=== PATIENT | female | born 1960 | race Caucasian/White ===

== ENCOUNTER 2019-02-05 10:12 | Observation (INO) | payer BC ==
[~2019-02-05] VITALS: Ht 157.5 cm; Wt 97.5 kg
--- OUTSIDE RECORDS SUMMARY | 2019-02-05 10:14 | XMS REPORT ---
Author Author [facility] Address Unknown Phone Unavailable Care Team Providers Care Subacute Nurse Name Role Phone Unavailable Unavailable Payers Payer Name Policy Type Policy Number Effective Date Expiration Date Problems This patient has no known problems. Allergies, Adverse Reactions, Alerts Allergy Name Allergy Type Status Severity Reaction(s) Onset Date Inactive Date Treating Clinician Comments glatiramer acetate DA Active SV 2012-05-02 00:00:00 Penicillins DA Active SV 2012-05-02 00:00:00 nitrofurantoin DA Active KS 2012-05-02 00:00:00 latex DA Active KS 2012-05-02 00:00:00 Medications This patient has no known medications. Results Test Description Test Time Test Comments Text Results Atomic Results Result Comments CALCULI URINARY WITH PHOTO 2018-12-22 16:08:00 ST COLOR (test code=COLST) Brown () ST SIZE (test code=SIZST) 6x4x3 mm () ST WEIGHT (test code=WGTST) 65.6 mg () ST COMPOSITION (test code=COMPST) () Percentage (Represents the % composition) ST CA OXALATE DIHYDRATE (test code=CAOXDST) 25 % () ST CA OXALATE MONOHYDRATE (test code=CAOXMST) 70 % () ST CA PHOSPHATE (test code=CAPHST) 05 % () ST NIDUS (test code=NIDUSST) No Nidus visualized () ST PHOTO (test code=PHOTST) () Photograph will follow under separate cover.Previously reported result: Edited by: THERESA on 12/22/18:66008412/22/18 1608: ANAST previously reported as: ST COMMENT 3 (test code=CMTST3) () Physician questions regarding Calculi Analysis [facility] at: [phone].Previously reported result: Edited by: THERESA on 12/22/18:03810412/22/18 1608: CMTST3 previously reported as: SURGICAL [id number] 13:22:00 RUN DATE: 12/20/18 [facility] *LIVE* PAGE 1 RUN TIME: 1323 Specimen Inqui ry RUN USER: INTERFACE PATIENT: BENIGNO PERSAUD ACCT #: [id number] LOC: VeenaSRG U #: [id number] AGE/SX: 57/F ROOM: RE12/15/18[facility] DR: Leroy Yanez Jr, MD : 58 BED: DIS: STATUS: [facility] TLOC: SPEC #: [id number] RECD: 12/18/18-1116 STATUS: GOYO PUGA #: [id number] GERMAN: 12/18/[address] [facility] [address]: Leroy Yanez Jr, MD ENTERED: 12/20/18 SP TYPE: SURG SPEC OTHR DR: DOES_N OT KNOW ORDERED: GM LEVEL 4 CODES: R74024 - URETER, NOS COPIES TO: DO ES_NOT KNOW Leroy Yanez Jr, MD [address] [place], [place] [address] PROCEDURES: GM LEVEL 4 (Incomplete) TISSUES: 1. URETE R, NOS - Calculus, right ureter FINAL DIAGNOSIS Calculus, right urete r: Sent for chemical analysis. Gross diagnosis only. GROSS AND MICROSCOPIC GROSS EXAMINATION: Received fresh labeled right ureteral stone is a 0.4 cm aggregate of kan-brown stones submitted for chemical analysis. POST-OP DIAGNOSIS Right ureteral stone PRE-OP DIAGNOSIS Right ureteral stone Signed SIGNATURE ON FILE Kade Christine DO 12/20/18 1322 END OF REPORT - XR CYSTOURETHRO [id number] 16:13:00 FAX: Leroy Rodarte Jr [phone] [place]: St: REG Name: N UNN,BENIGNO EULOGIO [facility] : [birth year] 59 Age/S: 57/F [address] [place] [address] Unit #: [id number] [place]: [place] [address] Phys: Leroy Yanez Jr, MD Acct: [id number] Dis Date: Status: REG SD PHONE #: [phone] Exam Date: 12/15/2018 1239 FAX #: [phone] Reason: RT RENAL CALCULUS,RT HYDRONEPHROSIS EXAMS: CPT CODE: [id number] XR CYSTOURETHRO RETRO 94338 Intraprocedural fluoroscopy was pr ovided by the Department of Radiology. Any images obtained were interprete d by the surgeon intraoperatively. FLUOROSCOPY TIME: 55 seco nds REFERENCE AIR KERMA : 12.51 mGy SL: TR-H at 1193 Reported and signed by: Kieran Mcnulyt M.D. CC: Leroy Yanez Jr, MD Technologist: Kalpana Nieves RT(R)(M) Trnscrd Date/Time/By: 12/15/2018 (9292) : By: [email or web address] Orig Print D/T: S: 12/15/2018 (9305) PAGE 1 Signed Report [id number] 12:55:00* Test Item Value Reference Range Comments GLUBED (test code=GLUBED) 143 MG/DL 70-110 Performed by certified process camera operator at [facility] [id number] 12:47:00* Test Item Value Reference Range Comments GLUBED (test code=GLUBED) 140 MG/DL 70-110 Performed by certified process camera operator at [facility] - XR ABDOMEN 1V (KUB)2018-12-15 12:06:00 FAX: Leroy Rodarte Jr [phone] [place]: St: REG Name: BENIGNO EDOUARD [facility] : [birth year] 59 Age/S: 57/F [address] [place] [address] Unit #: [id number] Loc: [place] [address] Phys: Leroy Yanez Jr, MD Acct: [id number] Dis Date: Status: REG [facility] PHONE #: [phone] Exam Date: 12/15/2018 1132 FAX #: [phone] Reason: CYSTOSCOPY EXAMS: CPT CODE: [id number] XR ABDOMEN 1V (KUB) 20514 Clinical Indication: Cystoscopy. Right ureteral calculus. Comparison: CT 12/09/2018. Impress ion: Abdomen, single view submitted on 2 images. Previously noted right ureteral calculus is not definitely appreciated on the current study. However, it may possibly lie just right of the sacrum. Bowel gas patter n is nonobstructive. Lumbosacral degenerative changes. SL: [id number] at 1206 Reported and signed by: Vitaly Willett M.D. CC: Leroy Yanez Jr, MD Technologist: RT Keron(Gisele) Trnscrd Date/Time/By: 12/15/2018 (8556) : By: [email or web address] Orig Print D/T: S: 12/15/2018 (4972) PAGE 1 Signed Report CBC W/AUTO [id number] 08:57:00* Test Item Value Reference Range Comments WHITE BLOOD CELL (test code=WBC) 8.77 x10 3/uL 4.5-11.0 RED BLOOD CELL (test code=RBC) 4.21 x10 6/uL 3.54-5.02 HEMOGLOBIN (test code=HGB) 12.2 g/dL 11.0-15.0 HEMATOCRIT (test code=HCT) 37.8 % 33.0-45.0 MEAN CELL VOLUME (test code=MCV) 89.8 fL 81.0-99.0 MEAN CELL HGB (test code=MCH) 29.0 pg 27.0-33.0 MEAN CELL HGB CONCETRATION (test code=MCHC) 32.3 g/dL 33.0-37.0 RED CELL DISTRIBUTION WIDTH CV (test code=RDW) 13.2 % 11.5-14.5 RED CELL DISTRIBUTION WIDTH SD (test code=RDW-SD) 43.8 fL 37.0-54.0 PLATELET COUNT (test code=PLT) 266 x10 3/uL 150-400 MEAN PLATELET VOLUME (test code=MPV) 11.1 fL 7.0-9.0 NEUTROPHIL % (test code=NT%) 59.7 % 56.0-77.0 IMMATURE GRANULOCYTE % (test code=IG%) 0.6 % 0.0-2.0 LYMPHOCYTE % (test code=LY%) 27.8 % 14.0-32.0 MONOCYTE % (test code=MO%) 7.0 % 4.8-9.0 EOSINOPHIL % (test code=EO%) 4.0 % 0.3-3.7 BASOPHIL % (test code=BA%) 0.9 % 0.0-2.0 NUCLEATED RBC % (test code=NRBC%) 0.0 % 0-0 NEUTROPHIL # (test code=NT#) 5.24 x10 3/uL 2.0-7.6 IMMATURE GRANULOCYTE # (test code=IG#) 0.05 x10 3/uL 0.00-0.03 LYMPHOCYTE # (test code=LY#) 2.44 x10 3/uL 1.0-3.8 MONOCYTE # (test code=MO#) 0.61 x10 3/uL 0.1-0.8 EOSINOPHIL # (test code=EO#) 0.35 x10 3/uL 0.0-0.2 BASOPHIL # (test code=BA#) 0.08 x10 3/uL 0.0-0.2 NUCLEATED RBC # (test code=NRBC#) 0.00 x10 3/uL 0.0-0.1 MANUAL DIFF REQUIRED (test code=MDIFF) NO PTH INTACT [id number] 08:52:00* Test Item Value Reference Range Comments PARATHYROID HORMONE INTACT (test code=PARAI) 30.5 pg/mL 14.0-72.0 COMPREHENSIVE METABOLIC [id number] 08:23:00* Test Item Value Reference Range Comments SODIUM (test code=NA) 138 mEq/L 134-147 POTASSIUM (test code=K) 3.9 mEq/L 3.4-5.0 CHLORIDE (test code=CL) 103 mEq/L 100-108 CARBON DIOXIDE (test code=CO2) 28 mEq/L 21-33 ANION GAP (test code=GAP) 11 0-20 GLUCOSE (test code=GLU) 147 mg/dL 70-110 BLOOD UREA NITROGEN (test code=BUN) 12 mg/dL 7-18 GLOMERULAR FILTRATION RATE (test code=GFR) 85.9 90-95 Units of measure=ml/min/1.73 m2 CREATININE (test code=CREAT) 0.7 mg/dL 0.6-1.3 TOTAL PROTEIN (test code=PROT) 7.0 g/dL 6.4-8.2 ALBUMIN (test code=ALB) 3.10 g/dL 3.4-5.0 CALCIUM (test code=CA) 9.4 mg/dL 8.0-10.5 BILIRUBIN TOTAL (test code=BILT) 0.6 MG/DL <1.5 SGOT/AST (test code=AST) 40 IUnit/L 15-37 SGPT/ALT (test code=ALT) 57 IUnit/L 15-65 ALKALINE PHOSPHATASE TOTAL (test code=ALKP) 115 IUnit/L 20-125 URIC [id number] 08:23:00* Test Item Value Reference Range Comments URIC ACID (test code=URIC) 4.9 mg/dL 2.6-7.2 PROTHROMBIN [id number] 08:21:00* Test Item Value Reference Range Comments PROTHROMBIN TIME PATIENT (test code=PTP) 11.0 SECONDS 9.3-12.9 INTERNATIONAL NORMAL RATIO (test code=INR) 1.0 0.8-1.2 TARGET INR BY INDICATION Indication INR1. Prophylaxis of venous thrombosis 2.0 - 3.0 (orthopedic surgery), Prophylaxis of venous thrombosis (other than high-risk surgery), Treatment of Deep Vein Thrombosis/Pulmonary Embolism, Prevention of systemic embolism - Tissue heart valves, Acute Myocardial Infarction (to prevent systemic embolism), Valvular heart disease, Atrial Fibrillation, Bileaflet mechanical valve in aortic position.2. Mechanical prosthetic valves (high risk), 2.5 - 3.5 Presence of Lupus Anticoagulant or Antiphospholipid Antibodies, Prevention of systemic embolism - Acute Myocardial Infarction (to prevent recurrent infarct). THROMBOPLASTIN TIME [id number] 08:21:00* Test Item Value Reference Range Comments THROMBOPLASTIN TIME PARTIAL (test code=PTT) 30.9 Seconds 25.0-39.5 Therapeutic Range: 50.4 - 88.3 Seconds Effective 07/11/2018 COMPREHENSIVE METABOLIC [id number] 08:21:00* Test Item Value Reference Range Comments SODIUM (test code=NA) 138 mEq/L 134-147 POTASSIUM (test code=K) 3.9 mEq/L 3.4-5.0 CHLORIDE (test code=CL) 103 mEq/L 100-108 CARBON DIOXIDE (test code=CO2) 28 mEq/L 21-33 ANION GAP (test code=GAP) 11 0-20 GLUCOSE (test code=GLU) 147 mg/dL 70-110 BLOOD UREA NITROGEN (test code=BUN) 12 mg/dL 7-18 GLOMERULAR FILTRATION RATE (test code=GFR) 90-95 CREATININE (test code=CREAT) mg/dL 0.6-1.3 TOTAL PROTEIN (test code=PROT) g/dL 6.4-8.2 ALBUMIN (test code=ALB) g/dL 3.4-5.0 CALCIUM (test code=CA) 9.4 mg/dL 8.0-10.5 BILIRUBIN TOTAL (test code=BILT) MG/DL <1.5 SGOT/AST (test code=AST) IUnit/L 15-37 SGPT/ALT (test code=ALT) IUnit/L 15-65 ALKALINE PHOSPHATASE TOTAL (test code=ALKP) IUnit/L 20-125 URIC [id number] 08:21:00* Test Item Value Reference Range Comments URIC ACID (test code=URIC) mg/dL 2.6-7.2 - XR CHEST 2 [id number] 08:17:00 FAX: Leroy Rodarte Jr [phone] [place]: St: PRE Name: BENIGNO EDOURAD [facility] : [birth year] 59 Age/S: 57/F [address] [place], [place] [address] Unit #: [id number] Loc: [place] [address] Phys: Leroy Yanez Jr, MD Acct: [id number] Dis Date: Status: PRE SDC PHONE #: [phone] Exam Date: 12/14/2018 08 FAX #: [phone] Reason: PRE-OP CYSTO EXAMS: CPT CODE: [id number] XR CHEST 2 V 93527 CHEST RADIOGRAPHS - PA AND LATERAL: COMPARISON: May 02, 2012 CLINICAL HISTORY: PRE-OP CYSTO The cardiopericardial silhouette is within normal limits. Small retrocardiac hiatal hernia is present. No vascular congestion or pneumothorax. Soft tissue calcifications a re seen adjacent to the right humeral head, possibly representing dystroph ic calcification and/or changes of calcific tendinitis of the rotator cuff . IMPRESSION: No acute pulmonary abnormality. Hiatal hernia. at 0817 Reported and signed by: Juan Mcdowell M.D. CC: Leroy Yanez Jr, MD Technologist: RT Gonsalo(R) Trnscrd Date/Time/By: 12/14/2018 (0817) : By: [email or web address] Orig Print D/T: S: 12/14/2018 (820) PAGE 1 Signed Report URINALYSIS [id number] 08:07:00* Test Item Value Reference Range Comments UA COLOR (test code=COLU) YELLOW YEL/STRAW UA APPEARANCE (test code=APPU) CLEAR CLEAR UA GLUCOSE DIPSTICK (test code=DGLUU) NEGATIVE NEGATIVE UA BILIRUBIN DIPSTICK (test code=BILU) NEGATIVE NEGATIVE UA KETONE DIPSTICK (test code=KETU) NEGATIVE NEGATIVE UA SPECIFIC GRAVITY (test code=SGU) 1.018 1.005-1.030 UA BLOOD DIPSTICK (test code=HARINDER) 1+ NEGATIVE UA PH DIPSTICK (test code=MANJEET) 5.0 5.0-7.0 UA PROTEIN DIPSTICK (test code=PROU) NEGATIVE NEGATIVE UA UROBILINIOGEN DIPSTICK (test code=URO) 0.2 mg/dL 0.2-1.0 UA NITRITE DIPSTICK (test code=PARRIS) NEGATIVE NEGATIVE UA LEUKOCYTE ESTERASE DIPSTICK (test code=LEUU) NEGATIVE NEGATIVE UA RBC (test code=RBCU) 11-20 RBC/HPF 0-3 UA WBC NO REFLEX (test code=WBCUCL) 4-9 WBC/HPF 0-3 UA BACTERIA (test code=BACU) NONE SEEN /HPF NONE SEEN UA SQUAMOUS CELLS (test code=SQU) 0-5 /HPF NONE SEEN UA CALCIUM OXALATE CRYSTALS (test code=CAOXU) TRACE /HPF NONE SEEN UA MUCUS (test code=MUCU) TRACE /LPF NONE SEEN HEPATIC FUNCTION [id number] 21:31:00* Test Item Value Reference Range Comments TOTAL PROTEIN (test code=PROT) 7.5 g/dL 6.4-8.2 ALBUMIN (test code=ALB) 3.40 g/dL 3.4-5.0 BILIRUBIN TOTAL (test code=BILT) 0.4 MG/DL <1.5 BILIRUBIN DIRECT (test code=BILD) 0.20 MG/DL 0.0-0.30 BILIRUBIN INDIRECT (test code=BILIND) 0.20 MG/DL SGOT/AST (test code=AST) 37 IUnit/L 15-37 SGPT/ALT (test code=ALT) 62 IUnit/L 15-65 ALKALINE PHOSPHATASE TOTAL (test code=ALKP) 138 IUnit/L 20-125 URINALYSIS [id number] 21:21:00* Test Item Value Reference Range Comments UA COLOR (test code=COLU) VERONICA YEL/STRAW UA APPEARANCE (test code=APPU) SL CLOUDY CLEAR UA GLUCOSE DIPSTICK (test code=DGLUU) 2+ NEGATIVE UA BILIRUBIN DIPSTICK (test code=BILU) NEGATIVE NEGATIVE UA KETONE DIPSTICK (test code=KETU) NEGATIVE NEGATIVE UA SPECIFIC GRAVITY (test code=SGU) 1.025 1.005-1.030 UA BLOOD DIPSTICK (test code=HARINDER) 3+ NEGATIVE UA PH DIPSTICK (test code=MANJEET) 5.0 5.0-7.0 UA PROTEIN DIPSTICK (test code=PROU) 2+ NEGATIVE UA UROBILINIOGEN DIPSTICK (test code=URO) 4.0 mg/dL 0.2-1.0 UA NITRITE DIPSTICK (test code=PARRIS) POSITIVE NEGATIVE UA LEUKOCYTE ESTERASE DIPSTICK (test code=LEUU) NEGATIVE NEGATIVE UA RBC (test code=RBCU) >50 RBC/HPF 0-3 UA WBC NO REFLEX (test code=WBCUCL) 0-3 WBC/HPF 0-3 UA BACTERIA (test code=BACU) NONE SEEN /HPF NONE SEEN UA SQUAMOUS CELLS (test code=SQU) 0-5 /HPF NONE SEEN UA MUCUS (test code=MUCU) 4+ /LPF NONE SEEN CBC W/AUTO [id number] 21:10:00* Test Item Value Reference Range Comments WHITE BLOOD CELL (test code=WBC) 10.13 x10 3/uL 4.5-11.0 RED BLOOD CELL (test code=RBC) 4.49 x10 6/uL 3.54-5.02 HEMOGLOBIN (test code=HGB) 12.9 g/dL 11.0-15.0 HEMATOCRIT (test code=HCT) 39.7 % 33.0-45.0 MEAN CELL VOLUME (test code=MCV) 88.4 fL 81.0-99.0 MEAN CELL HGB (test code=MCH) 28.7 pg 27.0-33.0 MEAN CELL HGB CONCETRATION (test code=MCHC) 32.5 g/dL 33.0-37.0 RED CELL DISTRIBUTION WIDTH CV (test code=RDW) 13.1 % 11.5-14.5 RED CELL DISTRIBUTION WIDTH SD (test code=RDW-SD) 42.5 fL 37.0-54.0 PLATELET COUNT (test code=PLT) 262 x10 3/uL 150-400 MEAN PLATELET VOLUME (test code=MPV) 10.8 fL 7.0-9.0 NEUTROPHIL % (test code=NT%) 73.4 % 56.0-77.0 IMMATURE GRANULOCYTE % (test code=IG%) 0.6 % 0.0-2.0 LYMPHOCYTE % (test code=LY%) 17.2 % 14.0-32.0 MONOCYTE % (test code=MO%) 7.5 % 4.8-9.0 EOSINOPHIL % (test code=EO%) 0.6 % 0.3-3.7 BASOPHIL % (test code=BA%) 0.7 % 0.0-2.0 NUCLEATED RBC % (test code=NRBC%) 0.0 % 0-0 NEUTROPHIL # (test code=NT#) 7.44 x10 3/uL 2.0-7.6 IMMATURE GRANULOCYTE # (test code=IG#) 0.06 x10 3/uL 0.00-0.03 LYMPHOCYTE # (test code=LY#) 1.74 x10 3/uL 1.0-3.8 MONOCYTE # (test code=MO#) 0.76 x10 3/uL 0.1-0.8 EOSINOPHIL # (test code=EO#) 0.06 x10 3/uL 0.0-0.2 BASOPHIL # (test code=BA#) 0.07 x10 3/uL 0.0-0.2 NUCLEATED RBC # (test code=NRBC#) 0.00 x10 3/uL 0.0-0.1 MANUAL DIFF REQUIRED (test code=MDIFF) NO CHEMISTRY 8 [id number] 21:09:00* Test Item Value Reference Range Comments ISTAT-SODIUM (test code=NAP) MMOL/L 134-147 ISTAT-POTASSIUM (test code=KP) MMOL/L 3.4-5.0 ISTAT-CHLORIDE (test code=CLP) MMOL/L 100-108 ISTAT CARBON DIOXIDE (test code=ISTAT-CO2) mmol/L 21-33 ISTAT CALCIUM IONIZED (test code=ISTAT-MEETA) MG/DL 1.12-1.32 ISTAT-GLUCOSE (test code=GLUP) MG/DL 70-110 ISTAT-BUN (test code=BUNP) MG/DL 7-18 BEDSIDE CREATININE (test code=CREATBED) MG/DL 0.6-1.3 GLOMERULAR FILTRATION RATE POC (test code=GFRBED) 91 ML/MIN CHEMISTRY 8 [id number] 21:09:00* Test Item Value Reference Range Comments ISTAT-SODIUM (test code=NAP) 134 MMOL/L 134-147 ISTAT-POTASSIUM (test code=KP) 3.9 MMOL/L 3.4-5.0 ISTAT-CHLORIDE (test code=CLP) 97 MMOL/L 100-108 Performed by certified process camera operator at [facility] ISTAT CARBON DIOXIDE (test code=ISTAT-CO2) 25.0 mmol/L 21-33 ISTAT CALCIUM IONIZED (test code=ISTAT-MEETA) 1.13 MG/DL 1.12-1.32 ISTAT-GLUCOSE (test code=GLUP) 219 MG/DL 70-110 ISTAT-BUN (test code=BUNP) 15 MG/DL 7-18 BEDSIDE CREATININE (test code=CREATBED) 0.7 MG/DL 0.6-1.3 GLOMERULAR FILTRATION RATE POC (test code=GFRBED) 91 ML/MIN LACTIC ACID [id number] 21:09:00* Test Item Value Reference Range Comments LACTIC ACID POC (test code=LACTP) 1.7 MMOL/L 0.90-1.70 Performed by certified process camera operator at [facility] - CT ABD PELVIS W/O [id number] 20:16:00 Name: BENIGNO PERSAUD [facility] : 1960 Age/S: 57 / F [address] [place] [address] Unit #: [id number] Loc: [place] [address] Phys: Randell Langford MD Acct: [id number] Dis Date: Status: PRE ER PHONE #: [phone] Exam Date: 12/09/20181948 FAX #: [phone] Reason: r flank pain EXAMS: CPT CODE: [id number] CT ABD PELVIS W/O CONT 09356 PROCEDURE: CT ABDOMEN AND PELVIS WITHOUT CONTRAST (RENAL STONE CT) INDICATION: Right flank pain COMPARISON: September 2008 TECHNIQUE: Noncontrasted helical imaging was performed diaphragm through the symphysis as a renal stone protocol with multiplanar reconstructions. CT imaging performed at this location utilizes radiation dose optimization techniques which include one or more of the following: -Automated exposure control -Adjustment of the mA and/or kV according to patient size -Use of iterative reconstruction technique CT Radiation Dose DLP 684.61 mGy-cm LIMITATIONS: Evaluation of abdominal viscera and vascular structures may be limited by the lack of intravenous contrast, which is standard for urinary calculus assessment CT. FINDINGS: KIDNEYS: Distal right ureteral calculus at the level of upper right sciatic notch measuring 5 x 4 mm. Mild right ureteral dilatation and moderate pelvocaliectasis. Mild asymmetric right perinephric stranding without fluid collection. No other discrete urinary calculi. No left-sided hydronephrosis. The renal contours are normal. LOWER CHEST: The lung bases are clear. Hiatal hernia containing portion of the proximal stomach. No regional inflammation. LIVER: The liver is diffusely diminished in attenua tion with sparing adjacent to the samaria hepatis and gallbladder fossa. At tenuation values of less than 10 Hounsfield units. No morphologic changes of cirrhosis. Craniocaudal length approximately 16 cm mid clavicular line. BILIARY TREE: No biliary dilatation. GALLBL ADDER: Normal. SPLEEN: Normal, 10.5 cm in length. Small accessory splenic lobule. PANCREAS: Normal. PAGE 1 Signed Report (CONTINUED) Name: BENIGNO PERSAUD [facility] : 1960 Age/S: 57 / F [address] [place] [address] Unit #: [id number] Loc: [place] [address] Phys: Randell Langford MD Acct: [id number] Dis Date: Status: PRE ER PHONE #: [phone] Exam Date: 12/09 FAX #: [phone] Reason: r flank pain EXAMS: CPT CODE: [id number] CT ABD PELVIS W/O CONT 74 176 <Continued> ADRENALS: Normal. BOWEL: Hiatal hernia containing portion of the proximal stomach. The stomach is otherwise unremarkable. The unopacified small bowel is unremarkable. Colonic diverticulosis, more numerous in the left colon. No inflammatory changes. No evidence for appendicitis. PERITONEUM: No free intraperitoneal fluid or air. RETROPERITONEUM: No adenopathy. Mild atherosclerosis abdominal aorta. PELVIS: No pelvic mass. Uterus is surgically absent. Urinary bladder is unremarkable. MUSCULOSKELETAL: Multilevel degenerative changes of the spine. Grade 1 anterolisthesis L5-S1. No pars defect. Facet arthropathy. IMPRESSION: 1. Distal right ureteral calculus with evidence for obstruction. 2. Severe hepatic steatosis. 3. Hiatal hernia. 4. Colonic diverticulosis. SL: KL-H at 2016 Reported and signed by: Kieran Mcnulty M.D. CC: Leroy Yanez Jr, MD Technologist:Oc Carrillo, RT(R)(CT) CTDI: DLP: Trnscb Date/Time: 12/09/2018 (2015) margie ALEGRIA Orig Print D/T: S: 12/09/2018 (2019) PAGE 2 Signed Report
[2019-02-05] MEDS ORDERED: NITROGLYCERIN 2% OINT 1 GM PKT TOP STA (10:41)
[2019-02-05] MEDS ORDERED: FAMOTIDINE 20 MG/2 ML VIAL IV STA (10:44)
[2019-02-05] MEDS ORDERED: DEXTROSE 50% SYRINGE 50 ML IV PRN (11:00)
[2019-02-05] MEDS ORDERED: MORPHINE SULFATE 2 MG/ML SYR 1ML IV PRN (11:00)
[2019-02-05] MEDS ORDERED: ONDANSETRON HCL INJ 2MG/ML 2ML 2 MG/ML VIAL IV PRN (11:00)
[2019-02-05] MEDS ORDERED: ONDANSETRON HCL INJ 2MG/ML 2ML 2 MG/ML VIAL IV ONE (11:30)
[2019-02-05] MEDS: INSULIN REGULAR, HUMAN 100 UNIT/1 ML 3ML VIAL SQ SCH ×3 (11:30→20:14)
[2019-02-05] MEDS ORDERED: ASPIRIN 81 MG CHEW TAB PO ONE (11:30)
[2019-02-05] MEDS ORDERED: ENOXAPARIN SODIUM INJ 100 MG/ML SYR SC ONE (11:30)
[2019-02-05] MEDS ORDERED: MORPHINE SULFATE INJ 4 MG/ML INJ 1ML IV ONE (11:30)
[2019-02-05] MEDS ORDERED: METOPROLOL TARTRATE 50 MG TAB PO ONE (11:30)
[2019-02-05] MEDS: FAMOTIDINE 20 MG/2 ML VIAL IV SCH ×2 (12:00→23:14)
[2019-02-05] MEDS: NITROGLYCERIN 2% OINT 1 GM PKT TOP SCH ×2 (12:00→20:14)
--- NOTE | 2019-02-05 12:06 | Diagnostic Imaging Report ---
Chest, 1 view, 02/05/2019. History: Midsternal chest pain. Comparison: None available. Findings: The cardiomediastinal silhouette and pulmonary vasculature are within normal limits for a portable exam. There is no focal consolidation or pleural effusion. Calcification is noted adjacent to the right humeral head which may represent calcific tendinitis. There are no acute osseous or soft tissue abnormalities. Impression: No acute cardiopulmonary abnormality. Signed by: Juancho Nava on 02/05/2019 12:03 PM
[2019-02-05 12:44] LABS: BASOPHILS # (AUTO) 0.1 (0.0-0.1); BASOPHILS % 0.7 % (0.0-1.0); EOSINOPHILS # (AUTO) 0.1 (0.0-0.4); EOSINOPHILS % 1.6 % (0.0-6.0); HEMATOCRIT 37.7 % (34.2-44.1); HEMOGLOBIN 12.2 g/dL (12.0-16.0); LYMPHOCYTES # (AUTO) 2.2 (1.0-3.2); LYMPHOCYTES % 24.4 % (18.0-39.1); MEAN CORPUSCULAR HEMOGLOBIN 27.5 pg (28-32); MEAN CORPUSCULAR HGB CONC 32.4 g/dL (31-35); MEAN CORPUSCULAR VOLUME 85.1 fL (81-99); MONOCYTES # (AUTO) 0.5 (0.2-0.8); MONOCYTES % 5.4 % (4.4-11.3); NEUTROPHILS # (AUTO) 6.1 (2.1-6.9); NEUTROPHILS % 67.5 % (38.7-80.0); PLATELET COUNT 296 x10e3/uL (140-360); RED BLOOD COUNT 4.43 x10e6/uL (3.6-5.1); RED CELL DISTRIBUTION WIDTH 13.6 % (11.7-14.4)
[2019-02-05 12:52] LABS: INR 0.95; PARTIAL THROMBOPLASTIN TIME 29.2 seconds (23.8-35.5); PROTHROMBIN TIME 13.2 seconds (11.9-14.5)
[2019-02-05 13:05] LABS: ALANINE AMINOTRANSFERASE 31 IU/L (0-55); ALBUMIN 3.4 g/dL (3.5-5.0); ALBUMIN/GLOBULIN RATIO 0.9 (0.8-2.0); ALKALINE PHOSPHATASE 90 IU/L (40-150); ANION GAP 12.9 mmol/L (8-16); BLOOD UREA NITROGEN 13 mg/dL (7-26); BUN/CREATININE RATIO 21 (6-25); CALCIUM 9.7 mg/dL (8.4-10.2); CARBON DIOXIDE 24 mmol/L (22-29); CHLORIDE 103 mmol/L (98-107); CREATINE KINASE 94 IU/L (29-168); CREATININE, SERUM 0.63 mg/dL (0.57-1.11); EST GLOMERULAR FILTRATION RATE > 60 ML/MIN (60-); GLUCOSE 143 mg/dL (74-118); MAGNESIUM 1.8 MG/DL (1.3-2.1); POTASSIUM 3.9 mmol/L (3.5-5.1); SODIUM 136 mmol/L (136-145)
[2019-02-05 15:21] VITALS: BP 172/79
[2019-02-05 15:30] VITALS: BP 172/79
[2019-02-05] MEDS ORDERED: METFORMIN HCL500 M2 PO (15:36)
[2019-02-05] MEDS ORDERED: METFORMIN HCL500 M1 PO (15:37)
[2019-02-05] MEDS ORDERED: JANUVIA100 MG PO (15:38)
[2019-02-05] MEDS ORDERED: SIMVASTATIN20 MG PO (15:39)
[2019-02-05] MEDS ORDERED: BENICAR20 MG PO (15:39)
[2019-02-05] MEDS ORDERED: HYDROCHLOROTHIA25 MG PO (15:40)
--- NOTE | 2019-02-05 18:44 | Consultation ---
DATE OF CONSULTATION: Cardiology Consultation HISTORY OF PRESENT ILLNESS: This is a 58-year-old woman with a history of hypertension, hyperlipidemia, diabetes mellitus, and obesity, presented to the emergency department with chest pain. The patient reports a pressure in her central chest with radiation through to her back, occurred while she was outside doing chores, worse with exertion, better with rest, worse with deep inspirations. No other exacerbating or relieving factors. She has no prior cardiac problems or myocardial infarctions. She states that she recently had an echocardiogram, however, cannot remember the results. REVIEW OF SYSTEMS: A 12-point review of system was conducted, is negative except as stated above in the HPI. PAST MEDICAL HISTORY: As stated above in the HPI. PAST SURGICAL HISTORY: None recent. PAST FAMILY HISTORY: No premature coronary artery disease or sudden cardiac . SOCIAL HISTORY: No illicit drug, alcohol, or tobacco use. ALLERGIES: PENICILLIN, LATEX, NITROFURANTOIN. MEDICATIONS: See medications reconciliation form. PHYSICAL EXAMINATION: VITAL SIGNS: Temperature is 96.3, heart rate 66, respirations are 18, blood pressure is 118/71, oxygen saturation 98% on room air. GENERAL: Well appearing, well built, no apparent distress. Alert and orient x3. HEAD: Normocephalic, atraumatic. EYES: Extraocular muscles are intact. Conjunctivae clear. NECK: No JVD. No bruits. CARDIOVASCULAR: Regular rate and rhythm. No murmurs. LUNGS: Clear to auscultation. No rales. ABDOMEN: Soft, nontender, nondistended. EXTREMITIES: No clubbing, cyanosis, or edema. VASCULAR: 2+ pulses. SKIN: Warm, dry and intact. NEUROLOGIC: No focal deficits noted. Cranial nerves grossly intact. PSYCHIATRIC: Normal mood and affect. LABORATORY DATA: Reviewed. Troponin negative x1. Magnesium is 1.8, total electrocardiogram showed normal sinus rhythm. IMPRESSION: 1. Chest pain. 2. Hypertension. 3. Hyperlipidemia. 4. Diabetes mellitus. 5. Obesity. RECOMMENDATIONS: The patient has one set of cardiac enzymes within normal limits. Recommend obtaining one additional troponin. We will check a 2D echocardiogram and a stress test to evaluate for myocardial ischemia. Continue antihypertensives and diabetic medications per primary team. Gabriel Hines DO BM/MODL /[id number]
[2019-02-05 19:41] VITALS: BP 173/76
[2019-02-05] MEDS: SIMVASTATIN 20 MG TAB PO SCH (20:14)
[2019-02-05 20:56] LABS: CREATINE KINASE 82 IU/L (29-168)
[2019-02-05 21:00] VITALS: BP 165/83
--- NOTE | 2019-02-05 22:00 | NUR ---
RECEIVED REPORT FROM NURSE, PATIENT RESTING IN BED WATCHING TV, REMAIN ON TELEMETRY. CALL LIGHT IN REACH. WILL CONTINUE TO MONITOR.
[2019-02-05] MEDS: ENOXAPARIN SODIUM INJ 100 MG/ML SYR SC SCH (23:15)
[2019-02-05] MEDS: METOPROLOL TARTRATE 25 MG TAB PO SCH (23:15)
[2019-02-05 23:46] VITALS: BP 115/68
[2019-02-06] VITALS (8 sets, daily range): BP systolic 104–183; BP diastolic 59–83
[2019-02-06 05:11] LABS: BASOPHILS # (AUTO) 0.1 (0.0-0.1); BASOPHILS % 0.8 % (0.0-1.0); EOSINOPHILS # (AUTO) 0.3 (0.0-0.4); EOSINOPHILS % 3.1 % (0.0-6.0); HEMOGLOBIN 11.5 g/dL (12.0-16.0); LYMPHOCYTES % 35.1 % (18.0-39.1); MEAN CORPUSCULAR HEMOGLOBIN 27.8 pg (28-32); MEAN CORPUSCULAR HGB CONC 31.1 g/dL (31-35); MEAN CORPUSCULAR VOLUME 89.4 fL (81-99); MONOCYTES # (AUTO) 0.5 (0.2-0.8); NEUTROPHILS # (AUTO) 4.6 (2.1-6.9); NEUTROPHILS % 54.8 % (38.7-80.0); PLATELET COUNT 285 x10e3/uL (140-360); RED BLOOD COUNT 4.14 x10e6/uL (3.6-5.1); RED CELL DISTRIBUTION WIDTH 13.7 % (11.7-14.4)
[2019-02-06 05:28] LABS: CREATINE KINASE 76 IU/L (29-168)
[2019-02-06 05:55] LABS: ALANINE AMINOTRANSFERASE 31 IU/L (0-55); ALBUMIN 3.3 g/dL (3.5-5.0); ALBUMIN/GLOBULIN RATIO 0.9 (0.8-2.0); ALKALINE PHOSPHATASE 89 IU/L (40-150); ANION GAP 12.5 mmol/L (8-16); BLOOD UREA NITROGEN 14 mg/dL (7-26); BUN/CREATININE RATIO 19 (6-25); CALCIUM 9.4 mg/dL (8.4-10.2); CARBON DIOXIDE 27 mmol/L (22-29); CHLORIDE 102 mmol/L (98-107); CHOL/HDL RATIO 3.2 (3.0-3.6); CHOLESTEROL 161 MD/DL (0-199); CREATININE, SERUM 0.72 mg/dL (0.57-1.11); EST GLOMERULAR FILTRATION RATE > 60 ML/MIN (60-); GLUCOSE 122 mg/dL (74-118); HDL CHOLESTEROL 50 MG/DL (40-60); LDL CHOLESTEROL 71 MG/DL (60-130); PHOSPHORUS 3.3 MG/DL (2.3-4.7); POTASSIUM 4.5 mmol/L (3.5-5.1); SODIUM 137 mmol/L (136-145); TRIGLYCERIDES 202 MG/DL (0-149)
[2019-02-06] MEDS: NITROGLYCERIN 2% OINT 1 GM PKT TOP SCH ×5 (06:25→23:49)
[2019-02-06 07:05] LABS: PLATELET ESTIMATE ADEQUATE
[2019-02-06 07:06] LABS: PLATELET MORPHOLOGY COMMENT FEW LARGE
--- NOTE | 2019-02-06 07:07 | NUR ---
REPORT GIVEN TO AM NURSE.
[2019-02-06] MEDS: INSULIN REGULAR, HUMAN 100 UNIT/1 ML 3ML VIAL SQ SCH ×4 (07:30→19:46)
[2019-02-06] MEDS: ASPIRIN 81 MG ENTERIC COATED PO SCH (09:00)
[2019-02-06] MEDS ORDERED: REGADENOSON 0.4 MG/5 ML SYR IV ONE (10:03)
[2019-02-06] MEDS ORDERED: ONDANSETRON HCL 4 MG ORAL DISINTEGRATING TAB PO PRN (10:15)
--- NOTE | 2019-02-06 11:53 | NUR ---
11am meds unable to be given at this time. patient at stress test.
[2019-02-06] MEDS: FAMOTIDINE 20 MG/2 ML VIAL IV SCH ×2 (13:45→20:18)
[2019-02-06] MEDS: ENOXAPARIN SODIUM INJ 100 MG/ML SYR SC SCH ×2 (13:46→23:12)
[2019-02-06] MEDS: METOPROLOL TARTRATE 25 MG TAB PO SCH ×2 (13:46→20:19)
--- NOTE | 2019-02-06 14:05 | NUR ---
Visit made by the Spiritual Care Department Pastoral Visitor, Savanah Rashid. PV provided pastoral presence, prayer, hospitality, and supportive listening. Pastoral Visitor informed pt/family of the scope of [employer] [facility] and availability. YUNIEL BERGERON Lab Rn Spiritual Care Department O: [phone] Pager: [phone] calling from)
--- NOTE | 2019-02-06 17:50 | NUR ---
RCD PT BY WHEELCHAIR PT IS ALERT AND ORIENTED VITALS CHECKED PT RESTING ON BED BED LOW AND LOCKED CALL LIGHT IN REACH
--- NOTE | 2019-02-06 18:17 | Progress Note ---
DATE: Cardiology Progress Note SUBJECTIVE: The patient reports a vague chest pain, however, is improved. No shortness of breath. OBJECTIVE: VITAL SIGNS: Temperature is 96.6, heart rate is 66, respirations 17, blood pressure is 143/70, and oxygen saturation 98% on room air. GENERAL: Well-appearing, well built, no apparent distress. Alert and oriented x3. CARDIOVASCULAR: Regular rate and rhythm. No murmurs. LUNGS: Clear to auscultation. ABDOMEN: Soft, nontender, and nondistended. EXTREMITIES: No clubbing, cyanosis, or edema. CARDIOVASCULAR MEDICATIONS: Reviewed. LABORATORY DATA: Reviewed. Stress test showed anterior ischemia. IMPRESSION: 1. Precordial pain. 2. Abnormal stress test. 3. Hypertension. 4. Hyperlipidemia. 5. Diabetes mellitus. 6. Obesity. RECOMMENDATIONS: The patient is ruled out for acute myocardial infarction. Echocardiogram was performed as an outpatient approximately one month ago and she states that it showed normal left ventricular function. These reports are unavailable to me. Continue current cardiovascular medications. Her stress test was abnormal and will need cardiac catheterization tomorrow. Please keep the patient n.p.o. after midnight. DO YANCY Bunn/MARCIOL /[id number]
--- NOTE | 2019-02-06 18:44 | NUR ---
PT RESTING ON BED BED SIDE REPORT GIVEN TO ONCOMING NURSE
[2019-02-06] MEDS: SIMVASTATIN 20 MG TAB PO SCH (20:18)
--- NOTE | 2019-02-06 20:20 | NUR ---
Patient requesting lax. Received orders from Dr. Kumar.
[2019-02-06] MEDS ORDERED: BISACODYL 5 MG TAB EC PO PRN (20:30)
[2019-02-07] VITALS (15 sets, daily range): BP systolic 107–136; BP diastolic 59–77
[2019-02-07] MEDS: NITROGLYCERIN 2% OINT 1 GM PKT TOP SCH ×2 (06:12→10:46)
--- NOTE | 2019-02-07 07:00 | NUR ---
RCD PT AT BED PT IS ALERT AND ORIENTED PT RESTING ON BED NO SIGNS OF ANY DISTRESS NOTED IV PATENT BY SALINE FLUSH PT NPO FOR PROCEDURE BED LOW AND LOCKED CALL LIGHT IN REACH
[2019-02-07] MEDS: INSULIN REGULAR, HUMAN 100 UNIT/1 ML 3ML VIAL SQ SCH ×2 (07:30→11:30)
[2019-02-07] MEDS: ASPIRIN 81 MG ENTERIC COATED PO SCH (09:00)
--- NOTE | 2019-02-07 10:43 | NUR ---
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
[2019-02-07] MEDS: FAMOTIDINE 20 MG/2 ML VIAL IV SCH (10:45)
[2019-02-07] MEDS: METOPROLOL TARTRATE 25 MG TAB PO SCH (11:00)
[2019-02-07] MEDS: ENOXAPARIN SODIUM INJ 100 MG/ML SYR SC SCH (11:00)
--- NOTE | 2019-02-07 11:34 | NUR ---
PT WENT TO PROCEDURE IN SAFE CONDITION
[2019-02-07] MEDS ORDERED: LIDOCAINE HCL 2% LOCAL 20 ML VIAL ONE (11:36)
[2019-02-07] MEDS ORDERED: HEPARIN SOD/SOD CHLORIDE 2,000 ML ONE (11:37)
[2019-02-07] MEDS ORDERED: IOPAMIDOL 370 MG/ML 200 ML INFUS..BTL INJ ONE (11:37)
[2019-02-07] MEDS ORDERED: FENTANYL CITRATE/PF 100MCG/2 ML INJ ONE (11:43)
[2019-02-07] MEDS ORDERED: SODIUM CHLORIDE 0.9% 1000ML 1,000 ML ONE (11:43)
[2019-02-07] MEDS ORDERED: MIDAZOLAM HCL 2 MG/2 ML VIAL ONE (11:43)
[2019-02-07] MEDS ORDERED: VERAPAMIL HCL 2.5 MG/ML 2 ML VIAL ONE (12:00)
--- NOTE | 2019-02-07 12:26 | NUR ---
1226t Received Rm #[id number].Bedside Report from MATTY Buckner. Identfierx2. Back to baseline orientation.Oriented and appropriate.PERRLA,respirations even and unlabored on RA.Pulsesx4 PPx4PT/DP and marked.Cap refll brisk<3 sec. Skin warm and dry, integrity appears intact. IVg#20 in rt hand. saline lock.Presents healthy w/o s/s of infiltration or complaint.Abdomen soft and supple,pt offered toileting,denies need to urinate or defecate. No personal affects with patient. Family at bedside. Pt and family verbalize understanding of care. Currently w/o pain or need TR band may reduce air at 1320m. ok then may return to rm 202 ds/rn
--- NOTE | 2019-02-07 13:20 | NUR ---
Attempted to remove 3ml of air from right wrist TR band. Right wrist site appears to have started bleeding. 3ml of air placed back into TR band. Right wrist site appears to be without signs or symptoms of active bleeding at this time. Patient awake,alert, and orientedx3. Respirations even and unlabored on room air. Call light within. Bed in low and locked position with siderails elevatedx2.
--- NOTE | 2019-02-07 14:00 | NUR ---
1400 RADIAL Compression removal: Initial Cuff volume 13 cc 14oopm -3cc cc Removed No hematoma/bleeding noted with normal neurovascular function. 1415p -5 cc Removed No hematoma/ bleeding noted with normal neurovascular function. 1430p -5cc Removed No hematoma/bleeding noted with normal neurovascular function. Air removal completed. Stasis achieved sterile 2x2,Tegaderm, Coban dressing No hematoma, bleeding noted with normal neurovascular function. Wrist splint in place. Pt instructed on POC. Ds/Rn
--- NOTE | 2019-02-07 14:15 | NUR ---
1415 Reposition for comfort back pain 07/[address] Hines paged for po pain med ds/rn
--- NOTE | 2019-02-07 14:44 | NUR ---
1444 STASIS ACHIEVED TO RT RADIAL TR BAND SITE TEACHING TOOL reviewed with pt as well as diagram . Dr Hines orders is ok to dc home if ok Dr Kumar Saline lock in place Vs stable NO gross issues pain pallor pressure or dysrhythmia. Pt aware to remove tr band support device in am and apply pressure for oozing of blood. Ask John STARR on verbal handoff to f/o any po tablet for pain and other dc instructions. Denies c/o at this time says pain much better on side.Light meal offered to pt. Transported to floor care per bed and zoll and pt left in room bed low position and call light at bedside and side rails up. neema/rn Addendum: 02/07/19 at 1530 by Mel Kimbrough RN 0404 Bedside nurse receiving pt from Software [employer] DeveloperJori Mulligan RN
--- NOTE | 2019-02-07 15:03 | NUR ---
PT BACK AFTER PROCEDURE PT IS ALERT AND ORIENTED VITALS CHECKED PT RESTING ON BED NO SIGNS OF BLEEDING ON THE RIGHT WRIST FAMILY AT BED SIDE BED LOW AND LOCKED CALL LIGHT IN REACH
[2019-02-07] MEDS ORDERED: VASCEPA1 GM PO (15:52)
--- NOTE | 2019-02-07 16:20 | NUR ---
PT WENT HOME IN SAFE CONDITION WITH HER NO SIGNS OF BLEEDING ON THE RIGHT WRIST INSTRUCTIONS GIVEN BY THE [employer] VESSEL NURSE REGARDING THE CARE ON THE WRIST AND AVOID HEAVY LIFTING FOR 2 WEEKS
--- NOTE | 2019-02-07 19:08 | Discharge Summary ---
FINAL DIAGNOSES: 1. Chest pain. Cardiac stress test positive, status post left heart catheterization. No intervention. No significant blockage. 2. Baseline severe reflux and hiatal hernia. SUMMARY: The patient is a 58-year-old female with reflux, hiatal hernia, chest pain, quite severe, however, more intense than previously. The patient underwent stress test that was positive, although her cardiac enzyme was negative. The patient underwent left heart catheterization today. The patient had normal left heart catheterization. The patient is stable. She will go home once cleared by Cardiology. The patient will resume her home medication. She will follow up with her family doctor for treatment of her reflux problem. MD ROLDAN Neri/ARACELY /[id number]
--- NOTE | 2019-02-08 18:53 | Operative Report ---
DATE OF PROCEDURE: 02/07/2019 SURGEON: Gabriel Hines DO PROCEDURES PERFORMED: 1. Conscious sedation, 26 minutes. 2. Selective coronary angiography x2. PREPROCEDURE DIAGNOSES: Abnormal stress test and chest pain. POSTPROCEDURE DIAGNOSIS: Minimal coronary artery disease. ESTIMATED BLOOD LOSS: Less than 10 mL. SPECIMENS REMOVED: None. PROCEDURE IN DETAIL: After informed consent was obtained, the patient was brought to the cardiac catheterization laboratory in a fasting and nonsedated state. The bilateral groins and right wrist were prepped and draped in the usual sterile fashion. A 2% lidocaine was infiltrated over the right anterior wrist for local anesthesia. Using micropuncture needle, the right radial artery was accessed via modified Seldinger technique and a 5/6 Slender sheath was placed. Next, diagnostic coronary angiography x2 was performed. The patient tolerated the procedure well with no immediate complications and transported to her room in stable condition. PROCEDURAL FINDINGS: 1. Left main coronary artery is patent without significant disease. 2. Left anterior descending coronary artery is patent without significant disease. 3. Left circumflex coronary artery provides 3 obtuse marginal vessels. There is a proximal 20% stenosis in the left circumflex. 4. Right coronary artery is dominant vessel with minimal luminal irregularities. IMPRESSION: Mild coronary artery disease. RECOMMENDATIONS: Medical therapy. Gabriel Hines DO BM/MODL /[id number]
--- NOTE | 2019-02-08 22:22 | Myoview Stress Test ---
DATE OF STUDY: 02/05/2019 18:03:00 Stress Test - Treadmill ONLY PROCEDURE TITLE: Rest/stress single isotope SPECT imaging with pharmacologic stress and gated SPECT imaging. INDICATION: Chest pain. PROCEDURE IN DETAIL: Pharmacologic stress testing was performed with regadenoson per protocol. The heart rate was 65 beats per minute at rest and increased to 95 beats per minute during the regadenoson infusion. The resting blood pressure was 120/75 mmHg and decreased to 117/65 mmHg, which is a normal response. The resting electrocardiogram demonstrated normal sinus rhythm. There were no ST-segment changes suggestive of myocardial ischemia. Myocardial perfusion imaging was performed at rest following the injection of 11 mCi of tetrofosmin. At peak pharmacologic effect, the patient was injected with 33 mCi of tetrofosmin. Gated post-stress tomographic imaging was performed. FINDINGS: The overall quality of study is fair. Left ventricular cavity is noted to be of normal size on the rest and stress studies. SPECT images demonstrate homogeneous tracer distribution throughout the myocardium. Gated SPECT imaging reveals normal myocardial thickening and wall motion. The left ventricular ejection fraction calculated to be greater than 70%. IMPRESSION: Myocardial perfusion imaging is normal. Overall, left ventricular systolic function was normal without regional wall motion abnormalities. Tyesha Shin MD ABS/MODL /[id number]
== END 2019-02-07 16:19 | disposition home or self-care (01) ==
LOC: ER 10:12 → ERHOLD 11:47 → IMCU 15:07 → MED/SURG2 02-06 17:51
PROVIDERS: ADMIT Internal Medicine; ATTEND Internal Medicine
DX: I25.119 Atherosclerotic heart disease of native coronary artery with unspecified angina pectoris (principal); K21.9 Gastro-esophageal reflux disease without esophagitis; K44.9 Diaphragmatic hernia without obstruction or gangrene; R94.39 Abnormal result of other cardiovascular function study; E11.9 Type 2 diabetes mellitus without complications; E78.5 Hyperlipidemia, unspecified; E66.9 Obesity, unspecified; Z68.39 Body mass index [BMI] 39.0-39.9, adult
CPT/HCPCS: 36415 ×3; 71045; 78452; 80053 ×2; 80061; 82550 ×2; 82553 ×2; 82948 ×3; 83690; 83735 ×2; 83880; 84100; 84484 ×2; 85025 ×2; 85610; 85730; 93005; 93017; 93306 ×2; 93454; 99284; A9502; C1769; C1887; G0378 ×3; J1650 ×3; J1817; J2001; J2250; J2270; J2405; J2785; J3010; J7030; Q9967; 99152

== ENCOUNTER → 2019-03-07 | Outpatient (CLI) | payer BC ==
[~2019-03-07] MED LIST: BENICAR20 MG PO; HYDROCHLOROTHIA25 MG PO; IOPAMIDOL 370 MG/ML 200 ML INFUS..BTL INJ ONE; JANUVIA100 MG PO; METFORMIN HCL500 M1 PO; METFORMIN HCL500 M2 PO; SIMVASTATIN20 MG PO; SODIUM CHLORIDE 0.9% 100 ML ONE; VASCEPA1 GM PO
[2019-03-07 08:32] LABS: BLOOD UREA NITROGEN 12 mg/dL (7-26); BUN/CREATININE RATIO 18 (6-25); CREATININE, SERUM 0.67 mg/dL (0.57-1.11); EST GLOMERULAR FILTRATION RATE > 60 ML/MIN (60-)
--- NOTE | 2019-03-07 09:34 | Diagnostic Imaging Report ---
CTA of the chest History: Chest pain. Comparison: Chest radiograph from 02/05/2019. Technique: Multidetector thin collimation CT scanning of the chest was performed from the level of the apices to the upper abdomen during the arterial phase, after intravenous administration of contrast. Coronal and sagittal reformations were reviewed as well as 3-D reconstructions of the thoracic aorta. RADIATION DOSE: Total DLP: 550.19 mGy*cm Dose modulation, iterative reconstruction, and/or weight based adjustment of the mA/kV was utilized to reduce the radiation dose to as low as reasonably achievable. FINDINGS: Vascular: The pulmonary arteries distribute normally. Although this examination was not tailored for optimal pulmonary arterial evaluation, no filling defect is identified suggest pulmonary thromboembolism. [employer] dimensions of the thoracic aorta are as follows: 2.7 cm at the aortic annulus 3.3 cm at the mid ascending aorta 2.6 cm at the distal ascending aorta 2.4 cm at the mid transverse arch 2.1 cm at the proximal descending thoracic aorta 2.1 cm at the diaphragmatic hiatus. Minimal atherosclerotic calcifications noted within the thoracic aorta. The great vessels are patent, noting a 4 vessel arch with the left vertebral artery arising directly off the aortic arch. The visualized abdominal aorta is normal in course and caliber. The celiac axis, SMA, and bilateral renal arteries are patent. The heart is not enlarged. No abnormal pericardial fluid is present. Atherosclerotic calcifications are noted within the coronary arteries. Nonvascular: The thyroid and remaining visual structures within the base of the neck demonstrate no significant abnormalities. There is no abnormal axillary, mediastinal, or hilar lymph node enlargement. Partially visualized bilateral breast prostheses noted. The trachea and proximal airways are patent. Examination of the lungs demonstrate no evidence for consolidation, pneumothorax, mass, suspicious nodule, or pleural effusion. There is a moderate sized hiatal hernia present. The remaining visualized upper abdominal contents are unremarkable. There are degenerative changes of the visualized spine. The osseous structures otherwise demonstrate no evidence for acute fracture or destructive process. IMPRESSION: 1. Unremarkable CTA of the chest, specifically no evidence for thoracic aortic aneurysm. 2. Moderate size hiatal hernia. Signed by: Dr. Adarsh Purdy MD on 03/07/2019 9:30 AM
== END ==
LOC: CT 07:26
PROVIDERS: ATTEND Internal Medicine Cardiovascular Disease
DX: R07.9 Chest pain, unspecified (principal)
CPT/HCPCS: 36415; 71275; 82565; 84520; J7050; Q9967